=== PATIENT | female | born 1980 | race Native Hawaiian/Other Pacific Islander ===

== ENCOUNTER 2017-04-08 17:29 | Emergency (ER) | payer OTHER ==
[2017-04-08 17:36] VITALS: RESP 18; TEMP 98.8
--- NOTE | 2017-04-08 17:47 | C.PDOC ---
History Of Present Illness 36 year old female presents to the ED for evaluation of right shoulder pain that has gradually developed for the past week. Patient states pain is localized over right shoulder and is exacerbated by raising right arm. She admits to taking care of a 5 month old and breast feeding. Patient denies direct injury, deformity, weakness, or sensory or vascular deficits in the right arm. Time Seen by Provider: 04/08/17 17:39 Chief Complaint (Nursing): Upper Extremity Problem/Injury History Per: Patient History/Exam Limitations: no limitations Onset/Duration Of Symptoms: Days (past week ), Gradual Quality: "Pain" Exacerbating Factor(s): Movement (raising right arm ) Recent travel outside of the [place]: No Past Medical History Reviewed: Historical Data, Nursing Documentation, Vital Signs Vital Signs: Last Vital Signs Temp 98.8 F 04/08/17 17:32 Pulse 78 04/08/17 17:32 Resp 18 04/08/17 17:32 BP 101/72 04/08/17 17:32 Pulse Ox 96 04/08/17 17:55 - [place] Procedures DELIVERY OF PRODUCTS OF CONCEPTION, EXTERNAL APPROACH (10/27/16) DIVISION OF FEMALE PERINEUM, EXTERNAL APPROACH (10/27/16) MONITORING OF POC, CARDIAC RATE, EVENT MGR APPROACH (10/27/16) Family History: States: Unknown Family Hx - Social History Hx Alcohol Use: No Hx Substance Use: No - Immunization History Hx Tetanus Toxoid Vaccination: No Hx Influenza Vaccination: No Hx Pneumococcal Vaccination: No Review Of Systems Constitutional: Negative for: Fever, Chills Cardiovascular: Negative for: Chest Pain Respiratory: Negative for: Shortness of Breath Musculoskeletal: Positive for: Shoulder Pain (localized right shoulder pain). Negative for: Arm Pain, Back Pain Neurological: Negative for: Weakness, Numbness Physical Exam - Physical Exam Appears: Well, Non-toxic, No Acute Distress Skin: Normal Color, Warm, No Rash, No Ecchymosis Chest: Symmetrical, No Deformity, No Tenderness Cardiovascular: Rhythm Regular Respiratory: No Decreased Breath Sounds, No Accessory Muscle Use, No Stridor, No Wheezing Extremity: Normal ROM (mild discomfort Right shoulder extension/abduction due to pain.), Tenderness (localized over Right superior shoulder), Capillary Refill (less than 2sec to Right hand), No Deformity, No Swelling Neurological/Psych: Oriented x3, Normal Speech, Normal Motor, Normal Sensation, Normal Reflexes ED Course And Treatment O2 Sat by Pulse Oximetry: 96 (room air ) Pulse Ox Interpretation: Normal - Other Rad Right shoulder X-Ray: Interpreted by Me, Viewed By Me Interpretation: (+) calcification vs sesamoid intra-articulat , no acute fx or dislocation Progress Note: On re-eval, pt is afebrile, hemodynamicaly stable. Non-toxic. Neck: Supple, (-) midline tenderness. Right shoulder: exam c/w tendonitis with mild discomfort on shoulder extension/abduction. No edema, no deformity, no skin changes, no neurovascular deficist distally to pain. Neurologicaly intact. XRay review and results discussed with pt. SLing applied to Right arm. Pt has clinical findings c/w Right shoulder tendonitis r/o calcific tendonitis. Pt advised and ref. to F/u with Ortho in 2-3 days for re-eval. return if any new changes. Disposition Counseled Patient/Family Regarding: Studies Performed, Diagnosis, Need For Followup, Rx Given - Disposition Referrals: Adonis Ordoñez MD [Staff Provider] - Disposition: HOME/ ROUTINE Disposition Time: 18:00 Condition: STABLE Additional Instructions: Sling Light duty to Right arm/shoulder, avoid arm raising Take medication as prescribed Follow up with Orthopedist in 2-3 days for re-evaluation. Return to ED if any worsening or new changes. Prescriptions: Ibuprofen [Motrin Tab] 600 mg PO Q4 #20 tab traMADol [Ultram] 50 mg PO TID #7 tab Instructions: Calcific Tendinitis (ED) - Clinical Impression Clinical Impression: Calcific tendinitis - Scribe Statement The provider has reviewed the documentation as recorded by the Scribrylee Sharma All medical record entries made by the Scribe were at my direction and personally dictated by me. I have reviewed the chart and agree that the record accurately reflects my personal performance of the history, physical exam, medical decision making, and the department course for this patient. I have also personally directed, reviewed, and agree with the discharge instructions and disposition.
[2017-04-08 18:13] VITALS: BP 100/68; PULSE 70; O2SAT 100
--- NOTE | 2017-04-08 18:14 | RAD ---
PROCEDURE: Radiographs of the Right Shoulder HISTORY: pain COMPARISON: No prior. FINDINGS: BONES: Normal. No fracture. JOINTS: Normal. Glenohumeral and acromioclavicular joints preserved. No osteoarthritis. SOFT TISSUES: Soft tissue calcifications seen adjacent to the humeral head suggestive of calcified tendinitis. OTHER FINDINGS: None. IMPRESSION: No evidence of acute fracture or dislocation. Findings suggestive of calcified tendinitis.
== END 2017-04-08 18:23 | disposition home or self-care (01) ==
LOC: C.ER 17:29
DX: M75.31 Calcific tendinitis of right shoulder (principal)